=== PATIENT | female | born 1935 | race Caucasian/White ===

== ENCOUNTER 2016-08-08 19:47 | Inpatient (IN) | payer MEDICARE, OTHER ==
[~2016-08-08] VITALS: Ht 165.1 cm; Wt 83.9 kg
[~2016-08-08 19:47] MED LIST: ULTRAM50 MG PO
[2016-08-08 20:41] LABS: HEMOGLOBIN 12.8 gm/dl (12.3-15.3); RED BLOOD COUNT 4.19 M/UL (4.00-5.10); WHITE BLOOD COUNT 6.4 K/UL (4.5-11.0)
[2016-08-09] MEDS ORDERED: ASPIR 8181 MG PO (07:52)
[2016-08-09] MEDS ORDERED: VALIUM 2 MG TAB2 MG PO (07:53)
[2016-08-09] MEDS ORDERED: LASIX TAB 20 MG20 MG PO (07:53)
[2016-08-09] MEDS ORDERED: LISINOPRIL5 MG PO (07:54)
[2016-08-09] MEDS ORDERED: NASONEX17 GM (07:54)
[2016-08-09] MEDS ORDERED: PAXIL10 MG PO (07:55)
[2016-08-09] MEDS ORDERED: ZANTAC 150 MG150 MG PO (07:55)
[2016-08-09] MEDS ORDERED: POTASSIUM CHLO10 MEQ PO (07:56)
[2016-08-09] MEDS ORDERED: CRESTOR10 MG PO (07:57)
[2016-08-09] MEDS ORDERED: XARELTO20 MG PO (07:57)
[2016-08-09] MEDS ORDERED: SOTALOL120 MG PO (07:58)
[2016-08-09] MEDS ORDERED: MYLICON CHEWABL80 MG PO (07:58)
[2016-08-09] MEDS ORDERED: TYLENOL 500 MG500 MG PO (07:59)
[2016-08-09] MEDS ORDERED: TRAMADOL HCL50 MG PO (07:59)
[2016-08-11] MEDS ORDERED: SOTALOL80 MG PO (14:10)
--- NOTE | 2016-08-11 15:35 | NUR ---
PATIENT BEING DISCHARGED. DICHARGE EDUCATION GIVEN TO PATIENT AND DAUGHTER. HOLTER MONITOR APPLIED PRIOR TO DISCHARGE. IV REMOVED, CATHETER INTACT, DRESSING APPLIED. NO COMPLICATIONS. PATIENT AND DAUGHTER VERBALIZED UNDERSTANDING RE: DISCHARGE INSTRUCTIONS. VSS PRIOR TO D/C. PATIENT TAKEN TO FRONT LOBBY VIA WHEELCHAIR.
[2016-11-08] MEDS ORDERED: CARAFATE1 GM PO (18:17)
[2016-11-08] MEDS ORDERED: COLACE 100MG C100 MG PO (18:19)
[2016-11-08] MEDS ORDERED: MIRALAX PACK 171 PKT PO (18:21)
[2016-11-08] MEDS ORDERED: MYTAB GAS80 MG PO (18:23)
== END 2016-08-11 15:42 | disposition home or self-care (01) | DRG 309 ==
LOC: ER1 19:47 → CCU 22:22 → ZEROF 22:22 → CCU 08-09 07:58 → PROG CARE 08-09 14:50
PROVIDERS: Specialist/Technologist Athletic Trainer; ADMIT Internal Medicine
PROC: 5A2204Z Restoration of Cardiac Rhythm, Single (ICD-10-PCS; principal; 2016-08-09)
DX: I48.91 Unspecified atrial fibrillation (principal); I50.32 Chronic diastolic (congestive) heart failure; J98.11 Atelectasis; I10 Essential (primary) hypertension; E78.5 Hyperlipidemia, unspecified; F41.9 Anxiety disorder, unspecified; Z87.11 Personal history of peptic ulcer disease; M79.7 Fibromyalgia; Z88.8 Allergy status to other drugs, medicaments and biological substances; Z79.01 Long term (current) use of anticoagulants; Z79.82 Long term (current) use of aspirin; Z79.899 Other long term (current) drug therapy
CPT/HCPCS: 36415; 71010; 80053; 80061; 82550; 82553; 83874; 84443; 84484; 85025; 93005; 96361; 96374; 96375; 99285; J1200; J2250; J2270

== ENCOUNTER 2021-02-06 14:07 | Emergency (ER) | payer MEDICARE, OTHER ==
[~2021-02-06] VITALS: Ht 165.1 cm; Wt 74.8 kg
[~2021-02-06 14:07] MED LIST changes: +AMITIZA8 MCG PO; +ASPIR 8181 MG PO; +AZITHROMYCIN250 MG PO; +CARAFATE 1 GM TA1 GM PO; +CARAFATE1 GM PO; +COLACE 100MG C100 MG PO; +CRESTOR10 MG PO; +LASIX TAB 20 MG20 MG PO; +LEVAQUIN500 MG PO; +LISINOPRIL2.5 MG PO; +LISINOPRIL5 MG PO; +MIRALAX PACK 171 PKT PO; +MYLICON CHEWABL80 MG PO; +MYTAB GAS80 MG PO; +NASONEX17 GM; +OMNICEF 300 MG300 MG PO; +PAXIL10 MG PO; +POTASSIUM CHLO10 MEQ PO; +RANITIDINE HCL150 M1 PO; +SOTALOL120 MG PO; +SOTALOL80 MG PO; +TRAMADOL HCL50 MG PO; +TYLENOL 500 MG500 MG PO; +TYLENOL W/CODEIN1 E1 PO; +VALIUM 2 MG TAB2 MG PO; +XARELTO20 MG PO; +ZANTAC 150 MG150 MG PO
[2021-02-06 14:42] LABS: HEMOGLOBIN 11.9 gm/dl (12.3-15.3); RED BLOOD COUNT 3.88 M/UL (4.00-5.10); WHITE BLOOD COUNT 6.9 K/UL (4.5-11.0)
[2021-02-06 15:14] LABS: BUN/CREATININE RATIO 9 (0-10)
[2021-02-06] MEDS ORDERED: BENZONATATE100 MG PO (18:47)
[2021-02-06] MEDS ORDERED: PROAIR DIGIHAL90 MCG INH (18:47)
[2021-02-06] MEDS ORDERED: MORGIDOX100 MG PO (20:56)
== END 2021-02-06 20:59 | disposition home or self-care (01) ==
LOC: ER1 14:07
PROVIDERS: Emergency Medicine
DX: U07.1 COVID-19 (principal); Z23 Encounter for immunization; I10 Essential (primary) hypertension
CPT/HCPCS: 0240U; 71045; 80053; 82550; 82553; 83605; 83874; 83880; 84484; 85025; 87040; 93005; 99284; M0245

== ENCOUNTER 2021-02-08 11:45 | Emergency (ER) | payer MEDICARE, OTHER ==
[~2021-02-08 11:45] MED LIST changes: +BENZONATATE100 MG PO; +MORGIDOX100 MG PO; +PROAIR DIGIHAL90 MCG INH
[2021-02-08 12:51] LABS: HEMOGLOBIN 12.4 gm/dl (12.3-15.3); RED BLOOD COUNT 3.96 M/UL (4.00-5.10)
[2021-02-08 12:59] LABS: WHITE BLOOD COUNT 8.7 K/UL (4.5-11.0)
[2021-02-08 13:50] LABS: BUN/CREATININE RATIO 15 (0-10)
== END 2021-02-08 16:45 | disposition home or self-care (01) ==
LOC: ER1 11:45
PROVIDERS: Nurse Practitioner
DX: U07.1 COVID-19 (principal); I48.91 Unspecified atrial fibrillation; I10 Essential (primary) hypertension; Z95.0 Presence of cardiac pacemaker; Z90.49 Acquired absence of other specified parts of digestive tract
CPT/HCPCS: 71045; 80053; 82550; 82553; 83874; 83880; 84484; 85025; 85610; 85652; 85730; 86140; 87040; 93005; 99285

== ENCOUNTER → 2021-06-29 | Outpatient (CLI) | payer MEDICARE, OTHER | LOC: CT 12:43 | DX: R10.12 Left upper quadrant pain (principal) | CPT/HCPCS: 36415; 82565; 84520; Q9967 ==

== ENCOUNTER → 2021-07-31 | Outpatient (CLI) | payer MEDICARE, OTHER | LOC: CT 08:00 | DX: R91.8 Other nonspecific abnormal finding of lung field (principal); R93.5 Abnormal findings on diagnostic imaging of other abdominal regions, including retroperitoneum; I10 Essential (primary) hypertension | CPT/HCPCS: 36415; 71260; 82565; Q9967 ==

== ENCOUNTER 2021-10-11 05:01 | Emergency (ER) | payer MEDICARE, OTHER ==
[2021-10-11 05:19] LABS: HEMOGLOBIN 12.9 gm/dl (12.3-15.3); RED BLOOD COUNT 4.13 M/UL (4.00-5.10); WHITE BLOOD COUNT 8.1 K/UL (4.5-11.0)
[2021-10-11] MEDS ORDERED: AMOX TR-K CLV1 EAC4 PO (11:35)
== END 2021-10-11 11:47 | disposition home or self-care (01) ==
LOC: ER1 05:01
DX: R42 Dizziness and giddiness (principal); J18.9 Pneumonia, unspecified organism; I10 Essential (primary) hypertension; Z79.01 Long term (current) use of anticoagulants; Z88.8 Allergy status to other drugs, medicaments and biological substances; Z95.0 Presence of cardiac pacemaker
CPT/HCPCS: 70450; 70496; 70498; 71045; 80053; 81001; 82550; 82553; 84484; 85025; 93005; 99285; Q9967